=== PATIENT | female | born 1950 ===

== ENCOUNTER 2017-04-19 14:17 | Emergency (ER) | payer MEDICARE ==
[~2017-04-19] VITALS: Ht 170.2 cm; Wt 79.4 kg
[2017-04-19] MEDS ORDERED: ASPI-757 PO (14:32)
[2017-04-19] MEDS ORDERED: ESTR-33 PO (14:32)
[2017-04-19] MEDS ORDERED: OMEG-41 PO (14:32)
[2017-04-19] MEDS ORDERED: ATEN-1 PO (14:32)
[2017-04-19] MEDS ORDERED: CHOL10005 PO (14:32)
[2017-04-19] MEDS ORDERED: MULT-1335 PO (14:32)
[2017-04-19] MEDS ORDERED: CETI-176 PO (14:32)
[2017-04-19] MEDS ORDERED: SIMV10TA96 PO (14:32)
[2017-04-19] MEDS ORDERED: LEVO-3 PO (14:32)
--- NOTE | 2017-04-19 14:39 | ER Report ---
History and Physical Time Seen By MD: 14:23 Hx. of Stated Complaint: FALL YESTERDAY FROM STANDING. PAIN OF COCCYX AND RIGHT HIP. AMBULATORY TO ED. HPI/ROS CHIEF COMPLAINT: Fall, right hip and back pain HISTORY OF PRESENT ILLNESS: Patient is a 67-year-old female accompanied by her , who presents to ED with complaint of right hip and lower back pain after she fell yesterday. She states that she was putting on her hiking boots and her was helping her time her left boot when she lost her balance and fell backwards onto her proximal area. She states that she she had some initial pain in her tailbone but now has pain on the right lateral hip area. She has not noted any bruising or swelling. She denies any urinary or bowel incontinence. She denies any radiation of pain down her leg. She denies any numbness or tingling into her legs. She states that she is able to walk but has little bit of pain with walking. She has not been taking any medication for this. She states that she is from [place], [place] and is going to be traveling by car and wanted to make sure that she didn't have any fracture. REVIEW OF SYSTEMS: Respiratory: No cough, no dyspnea. Cardiovascular: No chest pain, no palpitations. Gastrointestinal: No vomiting, no abdominal pain. Musculoskeletal: See history of present illness. Allergies: Coded Allergies: No Known Drug Allergies (Unverified , 04/19/17) Home Meds Reported Medications Cetirizine Hcl (ZYRTEC) 10 Mg Tablet, 10 MG PO QDAY, TAB 04/19/17 Aspirin (ASPIRIN) 325 Mg Tablet, 325 MG PO DAILY, TAB 04/19/17 [place]-3/Dha/Epa/Fish Oil (FISH OIL 1,400 MG SOFTGEL) 1 Each Capsule.dr, 1 EACH PO QHS 04/19/17 Multivitamin With Minerals (MULTIPLE VITAMIN) 1 Each Tablet, 1 EACH PO DAILY, TAB 04/19/17 Cholecalciferol (Vitamin D3) (VITAMIN D3) 1,000 Unit Tablet, 1000 UNIT PO DAILY , TAB 04/19/17 Simvastatin (ZOCOR) 10 Mg Tablet, 10 MG PO HS, TAB 04/19/17 Atenolol (ATENOLOL) 50 Mg Tablet, 0.5 TAB PO QDAY, TAB 04/19/17 Levothyroxine Sodium (LEVOTHYROXINE SODIUM) 100 Mcg Tablet, 100 MCG PO QDAY, TAB 04/19/17 Estradiol (ESTRADIOL) 1 Mg Tablet, 1 MG PO QTHREE TIMES A WEEK 04/19/17 Reviewed Nurses Notes: Yes Old Medical Records Reviewed: Yes Constitutional Vital Sign - Last 24 Hours 04/19/17 14:26 Temp 97.9 Pulse 80 Resp 18 B/P (MAP) 178/93 Pulse Ox 94 O2 Delivery Room Air Physical Exam General Appearance: The patient is alert, has no immediate need for airway protection and no current signs of toxicity. Patient appears to be no acute distress. Respiratory: Chest is non tender, lungs are clear to auscultation. Cardiac: regular rate and rhythm Gastrointestinal: Abdomen is soft and non tender, no masses, bowel sounds normal. Musculoskeletal: Neck: Neck is supple and non tender. There is right lateral hip area tenderness with palpation. No swelling or ecchymosis identified. She is full range of motion of right hip with minimal pain. Right lateral paravertebral lower lumbar tenderness with palpation as well as sacral area tenderness with palpation again, no ecchymosis or swelling identified. PT and DP pulses are 2+ bilaterally with normal capillary refill. Normal sensation. Skin: No rashes or lesions. DIFFERENTIAL DIAGNOSIS: After history and physical exam differential diagnosis was considered for back pain including but not limited to muscular pain, herniated disc, spine fracture, intra-abdominal causes and urinary tract infection. Medical Decision Making EKG/Imaging Imaging Right Hip Xrays: IMPRESSION: 1. No evidence of acute fracture or dislocation involving the right hip Report Dictated By: Sharon Bourne MD at 04/19/2017 3:20 PM Report E-Signed By: Sharon Bourne MD at 04/19/2017 3:21 PM Lumbar Spine Xrays: IMPRESSION: 1. Mild spondylotic changes of the lumbar spine although no evidence of acute fractures or subluxations Report Dictated By: Sharon Bourne MD at 04/19/2017 3:21 PM Report E-Signed By: Sharon Bourne MD at 04/19/2017 3:22 PM Sacrum/Coccyx Xrays: IMPRESSION: 1. There appears to be a fracture through the mid coccyx with 1 cm anterior displacement of the distal fragment Mild sclerotic changes of the SI joints bilaterally are likely arthritic Report Dictated By: Sharon Bourne MD at 04/19/2017 3:17 PM Report E-Signed By: Sharon Bourne MD at 04/19/2017 3:20 PM ED Course/Re-evaluation ED Course Will obtain lumbar spine, sacrum/coccyx, right hip x-rays. Discussed x-ray results with patient. Appears that she has had a displaced coccyx fracture. Will prescribe some pain medication for this. Advised to follow -up with primary care provider in orthopedics in 3-4 days in [place]. Decision to Disposition Date: Apr 19, 2017 Decision to Disposition Time: 15:47 Depart Departure Latest Vital Signs Vital Signs Date Time Temp Pulse Resp B/P (MAP) Pulse Ox O2 Delivery O2 Flow Rate FiO2 04/19/17 14:26 97.9 80 18 178/93 94 Room Air Impression: Primary Impression: Fracture of coccyx, initial encounter for closed fracture Condition: Improved Disposition: HOME OR SELF-CARE New Scripts Tramadol Hcl (TRAMADOL HCL) 50 Mg Tablet 50 MG PO Q4-6H, #12 TAB Prov: BRAYDEN ADAN PA-C 04/19/17 Patient Instructions: Coccyx Injury (ED) Additional Instructions: Use balloon doughnut for sitting. Follow-up with primary care provider or orthopedic surgery in 3-4 days. If having any worsening or concerning symptoms may return to the emergency department. Use stool softener. BRAYDEN ADAN PA-C Apr 19, 2017 14:39
--- NOTE | 2017-04-19 15:23 | RADIOLOGY IMAGING REPORT ---
[facility] PATIENT NAME: Dedra López : 1950 MR: [id number] V: [id number] EXAM DATE: ORDERING PHYSICIAN: BRAYDEN ADAN TECHNOLOGIST: Location: [facility] [place] Patient: Dedra López : 1950 Visit/Account:[id number] Date of Sevice: 04/19/2017 Exam type: SACRUM COCCYX History: Six days ago, pain in right hip and back Comparison: None. Findings: There are mild sclerotic changes of the SI joints bilaterally. The lateral views extremely rotated l imiting the study. There does appear to be a fracture through the mid coccyx with 1 cm anterior disp lacement of the distal fragment IMPRESSION: 1. There appears to be a fracture through the mid coccyx with 1 cm anterior displacement of the dist al fragment Mild sclerotic changes of the SI joints bilaterally are likely arthritic Report Dictated By: Sharon Bourne MD at 04/19/2017 3:17 PM Report E-Signed By: Sharon Bourne MD at 04/19/2017 3:20 PM WSN:[email or web address]
--- NOTE | 2017-04-19 15:25 | RADIOLOGY IMAGING REPORT ---
[place] [facility] [place] Dedra López : 1950 MR: [id number] V: [id number] EXAM DATE: ORDERING PHYSICIAN: BRAYDEN ADAN TECHNOLOGIST: Location: [facility] - [place] Patient: Dedra López : 1950 Visit/Account:[id number] Date of Sevice: 04/19/2017 Exam type: HIP RIGHT History: right hip pain and back pain, fall Comparison: None. Findings: Two views of the right hip reveal no evidence of acute fracture or dislocation. There are arthritic changes of the SI joints. IMPRESSION: 1. No evidence of acute fracture or dislocation involving the right hip Report Dictated By: Sharon Bourne MD at 04/19/2017 3:20 PM Report E-Signed By: Sharon Bourne MD at 04/19/2017 3:21 PM WSN:[email or web address]
--- NOTE | 2017-04-19 15:26 | RADIOLOGY IMAGING REPORT ---
FACILITY: [facility] PATIENT NAME: Dedra López : 1950 MR: [id number] V: [id number] EXAM DATE: ORDERING PHYSICIAN: BRAYDEN ADAN TECHNOLOGIST: Location: [facility] Patient: Dedra López : 1950 Visit/Account:[id number] Date of Sevice: 04/19/2017 Exam type: LUMBAR SPINE 2 OR 3 VIEW History: right hip pain and back pain, fall Comparison: None Findings: There are five nonrib-bearing lumbar-type vertebral bodies present. There is no evidence of acute fr actures or subluxations. There are mild spondylotic changes at L2-3 L3-4 and T11-12.. IMPRESSION: 1. Mild spondylotic changes of the lumbar spine although no evidence of acute fractures or subluxati ons Report Dictated By: Sharon Bourne MD at 04/19/2017 3:21 PM Report E-Signed By: Sharon Bourne MD at 04/19/2017 3:22 PM WSN:[email or web address]
[2017-04-19] MEDS ORDERED: TRAM-420 PO (15:58)
[2017-04-19 16:00] VITALS: BP 147/86
== END 2017-04-19 16:10 | disposition home or self-care (01) ==
LOC: ER 14:17
DX: S32.2XXA Fracture of coccyx, initial encounter for closed fracture (principal); W18.30XA Fall on same level, unspecified, initial encounter
CPT/HCPCS: 72100; 72220; 99283